=== PATIENT | female | born 1960 | race Caucasian/White ===

== ENCOUNTER 2016-12-06 06:56 | Day surgery (SDC) | payer BC ==
[~2016-12-06] VITALS: Ht 171.4 cm; Wt 52.7 kg
[2016-12-06 07:27] VITALS: BP 137/80; PULSE 83; RESP 20; TEMP 98.3; O2SAT 96
[2016-12-06] MEDS ORDERED: EMTRTAB6 PO (07:30)
[2016-12-06] MEDS ORDERED: LEVO175T2 PO (07:30)
[2016-12-06] MEDS ORDERED: ASPI81CH CHEW (07:30)
[2016-12-06] MEDS ORDERED: TRIA1TAB21 PO (07:30)
[2016-12-06] MEDS ORDERED: VITACAP7 PO (07:30)
[2016-12-06] MEDS ORDERED: CITA10TA4 PO (07:30)
[2016-12-06] MEDS ORDERED: ACYC-101 PO (07:30)
[2016-12-06] MEDS ORDERED: DIAZ5 PO (07:30)
[2016-12-06] MEDS ORDERED: SODIUM CHLOR 0.9% 1000 ML INJ 1,000 ML IV SCH (08:15)
[2016-12-06 09:25] VITALS: BP 136/73; PULSE 68; RESP 20; TEMP 98.4; O2SAT 98
--- NOTE | 2016-12-06 09:28 | PD.RAD ---
Post Procedure Progress Note Pre Procedure Diagnosis: (1) Idiopathic progressive neuropathy Post Procedure Diagnosis: (1) Idiopathic progressive neuropathy Procedure Date: December 06, 2016 Supervising Radiologist: Ken Arreola Proceduralist/Assist: RT Katerin(R), RT Randy(R)(CV) Anesthesia: Local Plan of Activity Patient to Unit: ROPU Patient Condition: Good See PACS Report for procedural detail/treatment Spinal Procedure Lumbar Puncture L3-L4 Fluid Removal (CCs): 16 Fluid Description: Clear Puncture Time: 09:16 Ken Arreola MD December 06, 2016 09:28
--- NOTE | 2016-12-06 09:51 | RADRPT ---
EXAM DATE/TIME: 12/06/2016 10:04 [facility] COMPARISON: No previous studies available for comparison. INDICATIONS : Patient presents with progressive neuropathy in need of lumbar puncture to rule out multiple sclerosi s. MEDICAL HISTORY : Fibromyalgia High cholesterol Hiv hx SURGICAL HISTORY : Lumbar discectomy Right knee ENCOUNTER: Initial ACUITY: 2 weeks PAIN SCORE: 0/10 LOCATION: N/A LUMBAR PUNCTURE TIME: 09:16 hours FLUORO TIME: 0.7 minutes IMAGE SERIES: ACCESS LEVEL: L3-4 FLUID: 16.5 cc of clear CSF was collected and sent to the laboratory for analysis. PROCEDURE : 1. Fluoroscopic guided lumbar puncture. The risks, benefits and alternatives to the procedure were explained and verbal and written consent w as obtained. The site was prepped in sterile fashion. Full sterile technique was used, including ca p, mask, sterile gloves and gown and a large sterile sheet. Hand hygiene and 2% chlorhexidine and/or betadine/alcohol prep was utilized per protocol for cutaneous antisepsis. The skin and subcutaneous tissues were infiltrated with local anesthetic solution. With fluoroscopic guidance the lumbar thecal sac was punctured at the level above. The fluid describ ed above was removed without difficulty. The patient tolerated the procedure well and there were no complications. CONCLUSION: Uncomplicated fluoroscopically guided lumbar puncture. Ken Arreola MD on December 06, 2016 at 9:49 Board Certified Radiologist. This report was verified electronically.
[2016-12-06 10:02] LABS: BICARBONATE 27.6 MEQ/L (21.0-32.0); POTASSIUM 3.3 MEQ/L (3.5-5.1)
[2016-12-06 10:22] LABS: GROSS BLOOD TUBE #1 0 (0); GROSS BLOOD TUBE #2 0 (0); GROSS BLOOD TUBE #3 0 (0); GROSS BLOOD TUBE #4 TRACE (0); SUPERNATE COLOR TUBE #1 CLEAR (CLEAR); SUPERNATE COLOR TUBE #2 CLEAR (CLEAR); SUPERNATE COLOR TUBE #3 CLEAR (CLEAR); SUPERNATE COLOR TUBE #4 CLEAR (CLEAR); VOLUME TUBE # 1 2.9 ML; VOLUME TUBE # 4 7.5 ML
[2016-12-06 10:23] LABS: CSF LYMPHOCYTES 65 %; CSF MONOCYTES 25 %; CSF NEUTROPHILS 10 %; WBC TUBE #4 5 /MM3 (0-10)
[2016-12-06 11:00] VITALS: BP 135/75; PULSE 68; RESP 20; O2SAT 98
[2016-12-07 16:39] LABS: ALBUMIN SERUM 4190 mg/dL (3200 - 4800); IGG CSF 4.6 mg/dL (<=8.1); IGG INDEX CSF 0.85 (<=0.85); IGG SERUM 853 mg/dL (767 - 1590); IGG/ALBUMIN CSF 0.17 (<=0.21); OLIGOCLONAL BANDING CSF 9 bands (()); OLIGOCLONAL BANDING INTERPRET 5 bands (<4); OLIGOCLONAL BANDING SERUM 4 bands (()); SYNTHESIS RATE CSF 9.57 mg/24 h (<=12)
[2016-12-09 09:35] LABS: CSF CRYPTOCOCCUS AG CONF ND (NOT DETECTD)
[2016-12-09 16:40] LABS: LYME IGG IMMUNOBLOT CSF None Detected bands (None Detected); LYME IGM IMMUNOBLOT CSF None Detected bands (None Detected)
[2016-12-11 13:53] LABS: VDRL CSF NON-REACTIVE (())
== END 2016-12-06 11:30 | disposition home or self-care (01) ==
LOC: HROP 06:56 → HRIP 06:57 → HROP 11:30
PROVIDERS: ATTEND Psychiatry & Neurology Neurology
DX: G60.3 Idiopathic progressive neuropathy (principal); G35 Multiple sclerosis; E78.00 Pure hypercholesterolemia, unspecified; M79.7 Fibromyalgia; B20 Human immunodeficiency virus [HIV] disease
CPT/HCPCS: 62270; 77003; 80048; 82040; 82042; 82784; 82945; 83873; 83916; 84157; 86403; 86592; 86618; 87015; 87070; 87102; 87116; 87205; 87206; 89051; J7030

== ENCOUNTER 2017-04-18 13:07 | Inpatient (IN) | payer BC ==
[~2017-04-18] VITALS: Ht 170.2 cm; Wt 56.2 kg
[~2017-04-18 13:07] MED LIST: ACYC-101 PO; ASPI81CH CHEW; CITA10TA4 PO; DIAZ5 PO; EMTRTAB6 PO; LEVO175T2 PO; TRIA1TAB21 PO; VITACAP7 PO
[2017-04-18 13:14] VITALS: BP 122/59; PULSE 110; RESP 18; TEMP 98.8; O2SAT 92
[2017-04-18] MEDS ORDERED: MULTTAB27 (13:25)
[2017-04-18] MEDS ORDERED: EMTR1TAB2 PO (13:25)
[2017-04-18] MEDS ORDERED: MAGN400T2 PO (13:25)
[2017-04-18] MEDS ORDERED: POTA8CAP PO (13:25)
[2017-04-18] MEDS ORDERED: ESCI10TA PO (13:25)
[2017-04-18] MEDS ORDERED: TRAM50TA PO (13:25)
[2017-04-18] MEDS ORDERED: HALC0.25 PO (13:25)
[2017-04-18] MEDS ORDERED: LEVOFLOXACIN 750 MG PREMIX INJ 150 ML IV ONE (13:30)
[2017-04-18] MEDS ORDERED: CLINDAMYCIN INJ 600 MG in SODIUM CHLORIDE 0.9% INJ 100 ML IV ONE (13:30)
[2017-04-18] MEDS ORDERED: SODIUM CHLORIDE 0.9% FLUSH 10 ML FLUSH IVF PRN ×2 (13:30)
--- NOTE | 2017-04-18 13:38 | PD ---
HPI Chief Complaint: Respiratory Symptoms Time Seen by Provider: 13:16 Travel History International Travel<30 days: No Contact w/Intl Traveler<30days: No Traveled to known affect area: No History of Present Illness HPI PATIENT SEEN BY PRIMARY CARE DOCTOR AND ADVISED TO COME TO ER.....PER PATIENT C/ O COUGH, X 2DAYS, NONPRODUCTIVE, SOB/WHEEZY, PER PATIENT HAS HIV POSITIVE STATUS , AND PER HX STATES CD4 COUNT IN THE 700'S....C/O BODY ACHES..... DENIES SANTAIGO/N/V /D/CHILLS/ PFSH Past Medical History Cancer: No Cardiovascular Problems: No Diabetes: No Endocrine: No Gastrointestinal Disorders: No Genitourinary: No Hepatitis: No Hiatal Hernia: No Hypertension: No Immune Disorder: Yes (HIV) Medical other: Yes (FIBROMYALGIA) Musculoskeletal: No Neurologic: Yes (PAIN ALL OVER,NEUROPATHY) Psychiatric: Yes (ANXIETY) Reproductive: No Respiratory: No Thyroid Disease: Yes Ovarian Cysts: Yes Past Surgical History Abdominal Surgery: No AICD: No Cardiac Surgery: No Ear Surgery: No Endocrine Surgery: No Eye Surgery: No Genitourinary Surgery: No Gynecologic Surgery: Yes (OVARIAN CYST) Joint Replacement: No Neurologic Surgery: No Oral Surgery: Yes (ROOT CANAL) Pacemaker: No Thoracic Surgery: No Other Surgery: Yes Social History Alcohol Use: No Tobacco Use: Yes (1 PPD) Substance Use: No Allergies-Medications (Allergen,Severity, Reaction): Coded Allergies: Sulfa (Sulfonamide Antibiotics) (Unverified Allergy, Intermediate, Rash, ) codeine (Unverified Allergy, Mild, Nausea/Vomiting, 04/18/17) Reported Meds & Prescriptions Reported Meds & Active Scripts Active Reported Escitalopram (Escitalopram Oxalate) 10 Mg Tab 10 Mg PO DAILY Odefsey (Tsewetfekited-Beuswgwplpe-Hlpviuiaw Alafenam) 200-200-25 Mg Tab 1 Tab PO DAILY Halcion (Triazolam) 0.25 Mg Tab 0.25 Mg PO HS Tramadol (Tramadol HCl) 50 Mg Tab 50 Mg PO TID PRN Magnesium Oxide 400 Mg Tab 400 Mg PO DAILY Potassium Chloride ER (Potassium Chloride) 8 Meq Cap 8 Meq PO DAILY Multi-Day Vitamins (Multiple Vitamin) 1 Tab Tab Valium (Diazepam) 5 Mg Tab 5 Mg PO TID PRN B Complex (B-Complex Vitamins) 1 Cap 1 Cap PO DAILY Zovirax (Acyclovir) 800 Mg Tab 800 Mg PO TID PRN Levothyroxine (Levothyroxine Sodium) 175 Mcg Tab 175 Mcg PO DAILY Review of Systems Except as stated in HPI: all other systems reviewed are Neg Respiratory: Positive: Cough, Wheezing Physical Exam Narrative GENERAL: SKIN: Warm and dry. HEAD: Atraumatic. Normocephalic. EYES: Pupils equal and round. No scleral icterus. No injection or drainage. ENT: No nasal bleeding or discharge. Mucous membranes pink and moist. NECK: Trachea midline. No JVD. CARDIOVASCULAR: Regular rate and rhythm. RESPIRATORY: No accessory muscle use. Clear to auscultation. Breath sounds equal bilaterally. GASTROINTESTINAL: Abdomen soft, non-tender, nondistended. Hepatic and splenic margins not palpable. MUSCULOSKELETAL: Extremities without clubbing, cyanosis, or edema. No obvious deformities. NEUROLOGICAL: Awake and alert. No obvious cranial nerve deficits. Motor grossly within normal limits. Five out of 5 muscle strength in the arms and legs. Normal speech. PSYCHIATRIC: Appropriate mood and affect; insight and judgment normal. Data Data Last Documented VS Vital Signs Date Time Temp Pulse Resp B/P (MAP) Pulse Ox O2 Delivery O2 Flow Rate FiO2 04/18/17 14:13 92 Aerosol Mask 04/18/17 13:14 98.8 110 18 122/59 (80) Orders Orders Electrocardiogram (04/18/17 13:29) Arterial Blood Gas (Abg) (04/18/17 13:29) Complete Blood Count With Diff (04/18/17 13:29) Comprehensive Metabolic Panel (04/18/17 13:29) Ecg Monitoring (04/18/17 13:29) Iv Access Insert/Monitor (04/18/17 13:29) Oximetry (04/18/17 13:29) Oxygen Administration (04/18/17 13:29) Albuterol Neb (Albuterol Neb) (04/18/17 13:30) Sodium Chloride 0.9% Flush (Ns Flush) (04/18/17 13:30) Lactic Acid Sepsis Protocol (04/18/17 13:29) Pneumococcal Urinary Antigen (04/18/17 13:29) Influenzae A/B Antigen (04/18/17 13:29) Urinalysis - C+S If Indicated (04/18/17 13:29) Urine Culture (04/18/17 13:29) Legionella Urinary Antigen (04/18/17 13:29) Sodium Chloride 0.9% Flush (Ns Flush) (04/18/17 13:30) Levofloxacin 750 Mg Premix Inj (Levaquin (04/18/17 13:30) Clindamycin Inj (Cleocin Inj) (04/18/17 13:30) Ct Pulmonary Angiogram (04/18/17 13:54) Budesonide Neb (Pulmicort Respule Neb) (04/18/17 14:15) Iohexol 350 Inj (Omnipaque 350 Inj) (04/18/17 15:15) Admit Order (Ed Use Only) (04/18/17 15:53) Labs Laboratory Tests Test 04/18/17 14:03 04/18/17 14:05 Blood Gas Puncture Site RT RADIAL Blood Gas Patient Temperature 98.6 Blood Gas HCO3 23 mmol/L Blood Gas Base Excess -0.4 mmol/L Blood Gas Oxygen Saturation 88 % Arterial Blood pH 7.45 Arterial Blood Partial Pressure CO2 34 mmHG Arterial Blood Partial Pressure O2 65 mmHG Arterial Blood Oxygen Content 17.3 Vol % Arterial Blood Carboxyhemoglobin 2.8 % Arterial Blood Methemoglobin 1.1 % Blood Gas Hemoglobin 14.0 G/DL Oxygen Delivery Device ROOM AIR Blood Gas Inspired Oxygen 21 % White Blood Count 6.8 TH/MM3 Red Blood Count 4.37 MIL/MM3 Hemoglobin 14.4 GM/DL Hematocrit 42.2 % Mean Corpuscular Volume 96.6 FL Mean Corpuscular Hemoglobin 32.9 PG Mean Corpuscular Hemoglobin Concent 34.1 % Red Cell Distribution Width 12.2 % Platelet Count 281 TH/MM3 Mean Platelet Volume 8.4 FL Neutrophils (%) (Auto) 65.0 % Lymphocytes (%) (Auto) 25.2 % Monocytes (%) (Auto) 7.8 % Eosinophils (%) (Auto) 1.6 % Basophils (%) (Auto) 0.4 % Neutrophils # (Auto) 4.5 TH/MM3 Lymphocytes # (Auto) 1.7 TH/MM3 Monocytes # (Auto) 0.5 TH/MM3 Eosinophils # (Auto) 0.1 TH/MM3 Basophils # (Auto) 0.0 TH/MM3 CBC Comment DIFF FINAL Differential Comment Urine Collection Type CLEAN CATCH Urine Color YELLOW Urine Turbidity CLEAR Urine pH 6.0 Urine Specific [place] 1.015 Urine Protein NEG mg/dL Urine Glucose (UA) NEG mg/dL Urine Ketones NEG mg/dL Urine Occult Blood NEG Urine Nitrite NEG Urine Bilirubin NEG Urine Leukocyte Esterase NEG Urine RBC 0-3 /hpf Urine Squamous Epithelial Cells 0-5 /hpf Microscopic Urinalysis Comment CULT NOT INDICATED Urine Collection Time 14:05 Blood Urea Nitrogen 17 MG/DL Creatinine 0.70 MG/DL Random Glucose 93 MG/DL Total Protein 8.2 GM/DL Albumin 4.2 GM/DL Calcium Level 9.7 MG/DL Alkaline Phosphatase 68 U/L Aspartate Amino Transf (AST/SGOT) 21 U/L Alanine Aminotransferase (ALT/SGPT) 30 U/L Total Bilirubin 0.5 MG/DL Sodium Level 137 MEQ/L Potassium Level 3.4 MEQ/L Chloride Level 102 MEQ/L Carbon Dioxide Level 28.5 MEQ/L Anion Gap 7 MEQ/L Estimat Glomerular Filtration Rate 87 ML/MIN Lactic Acid Level 0.6 mmol/L [facility] Medical Decision Making Medical Screen Exam Complete: Yes Emergency Medical Condition: Yes Medical Record Reviewed: Yes Interpretation(s) NSR,96, NL INTERVALS, NO STEMI PATTERN Differential Diagnosis PNA V BRONCHOSPASM V ATYPICAL PNA V PNEUMOCYSTIS CARINII PNEUMONIA V PE Narrative Course AFTER THOROUGH EVALUATION, PT FOUND TO HAVE a-A GRADIENT ON ABG, HYPOXEMIA OF 64 WITHOUT CO2 RETENTION. PATIENT RESPONDED WELL TO HOURLONG NEBS, AND NEB PULMICORT, WELL GIVEN CLINDAMYCIN TO COVER FOR PCP (PT ALLERGIC TO FIRST LINE SULFA) AND LEVAQUIN TO COVER FOR OTHER ORGANISMS. CT NEG FOR PE OR PNA....PATIENT WILL BE ADMITTED FOR OBSERVATION Diagnosis Primary Impression: HYPOXEMIC RESPIRATORY DISTRESS Additional Impression: SUSPECT NEW ONSET COPD Admitting Information Admitting Physician Requests: Observation Memo Estrella MD Apr 18, 2017 13:38
[2017-04-18] MEDS: RESP: ALBUTEROL 2.5 MG/3 ML NEB (SCH) INH (13:58)
[2017-04-18 14:11] LABS: BLOOD GAS BASE EXCESS -0.4 mmol/L (-2-2); BLOOD GAS CARBOXYHEMOGLOBIN 2.8 % (0-4); BLOOD GAS HCO3 23 mmol/L (22-26); BLOOD GAS METHEMOGLOBIN 1.1 % (0-2); BLOOD GAS O2 HGB SATURATION 88 % (90-100); BLOOD GAS OXYGEN CONTENT 17.3 Vol % (12.0-20.0); BLOOD GAS PCO2 34 mmHG (38-42); BLOOD GAS PO2 65 mmHG (61-120); TEMP CORR TO 98.6
[2017-04-18 14:12] LABS: CRITICAL VALUE YES; DRAW SITE RT RADIAL; FIO2 21 %; NUMBER OF ARTERIAL PUNCTURES 1; OXYGEN DEVICE ROOM AIR; STAT YES; ULNAR PULSE PRESENT
[2017-04-18 14:13] VITALS: O2SAT 92
[2017-04-18 14:13] LABS: AUTOMATED NEUTROPHIL # 4.5 TH/MM3 (1.8-7.7); BASOPHIL % 0.4 % (0.0-2.0); EOSINOPHIL # 0.1 TH/MM3 (0-0.4); EOSINOPHIL % 1.6 % (0.0-4.0); HEMATOCRIT 42.2 % (35.0-46.0); HEMO FLAGS DIFF FINAL; LYMPH % 25.2 % (9.0-44.0); LYMPHOCYTE # 1.7 TH/MM3 (1.0-4.8); MEAN CELL VOLUME 96.6 FL (80.0-100.0); MEAN CORPUSCULAR HEMOGLOBIN 32.9 PG (27.0-34.0); MEAN CORPUSCULAR HGB CONC 34.1 % (32.0-36.0); MONO % 7.8 % (0.0-8.0); PLATELET COUNT 281 TH/MM3 (150-450); RED BLOOD COUNT 4.37 MIL/MM3 (4.00-5.30); RED CELL DISTRIBUTION WIDTH 12.2 % (11.6-17.2); WHITE BLOOD COUNT 6.8 TH/MM3 (4.0-11.0)
[2017-04-18] MEDS ORDERED: RESP: BUDESONIDE 0.5 MG/2 ML NEB NEB ONE (14:15)
[2017-04-18 14:17] LABS: BLOOD, URINE NEG (NEG); GLUCOSE,URINE NEG (NEG); KETONE, URINE NEG (NEG); NITRITE,URINE NEG (NEG)
[2017-04-18 14:21] LABS: CHLORIDE 102 MEQ/L (98-107); POTASSIUM 3.4 MEQ/L (3.5-5.1); SODIUM (NA) 137 MEQ/L (136-145)
[2017-04-18 14:26] LABS: ANION GAP 7 MEQ/L (5-15); BICARBONATE 28.5 MEQ/L (21.0-32.0); BLOOD UREA NITROGEN 17 MG/DL (7-18)
[2017-04-18 14:29] LABS: ALT (GPT) 30 U/L (10-53); AST (GOT) 21 U/L (15-37); GLOMERULAR FILTRATION RATE 87 ML/MIN (>89)
[2017-04-18 14:30] LABS: TOTAL BILIRUBIN ADULT 0.5 MG/DL (0.2-1.0)
[2017-04-18 14:32] LABS: ALKALINE PHOSPHATASE 68 U/L (45-117); COMMENT (UR) CULT NOT INDICATED; CULTURE IF INDICATED CULT NOT INDICATED; METHOD OF COLLECTION CLEAN CATCH; RBC, URINE 0-3 /hpf (0-3); SQUAMOUS EPITHELIAL CELL URINE 0-5 /hpf (0-5); URINE COLOR YELLOW (YELLW/STRAW)
[2017-04-18] MEDS ORDERED: IOHEXOL 350 MG/ML 10 ML VIAL (for RAD DIAG) IVCONTRAST ONE (15:15)
--- NOTE | 2017-04-18 15:31 | RADRPT ---
EXAM DATE/TIME: 04/18/2017 15:11 [facility] COMPARISON: No previous studies available for comparison. INDICATIONS : Short of breath. Cough x 2 days. IV CONTRAST: 75 cc Omnipaque 350 (iohexol) IV RADIATION DOSE: 6.46 CTDIvol (mGy) MEDICAL HISTORY : HIV. SURGICAL HISTORY : None. ENCOUNTER: Initial ACUITY: 2 days PAIN SCALE: 0/10 LOCATION: chest TECHNIQUE: Volumetric scanning of the chest was performed using a pulmonary embolism protocol MIP images were re constructed. Using automated exposure control and adjustment of the mA and/or kV according to patien t size, radiation dose was kept as low as reasonably achievable to obtain optimal diagnostic quality images. DICOM format image data is available electronically for review and comparison. Follow-up recommendations for detected pulmonary nodules are based at a minimum on nodule size and pa tient risk factors according to Fleischner Society Guidelines. FINDINGS: PULMONARY ARTERIES: No filling defects are seen in the pulmonary arteries through the segmental level. LUNGS: There is no consolidation or pneumothorax . No concerning pulmonary nodule is visualized. PLEURAE: There is no pleural thickening or pleural effusion. MEDIASTINUM: There is good visualization of the great vessels of the middle mediastinum. No evidence of mediastin al or hilar adenopathy/mass. MUSCULOSKELETAL: Within normal limits for patient age. MISCELLANEOUS: The visualized upper abdominal organs demonstrate no acute abnormality. CONCLUSION: 1. Negative examination. Galdino Elliott MD on April 18, 2017 at 15:27 Board Certified Radiologist. This report was verified electronically.
[2017-04-18] MEDS ORDERED: RESP: ALBUTEROL 2.5 MG/IPRATROPIUM 0.5 MG NEB (PRN) NEB (16:00)
[2017-04-18] MEDS ORDERED: SODIUM CHLORIDE 0.9% FLUSH 10 ML FLUSH IV FLUSH PRN (16:00)
[2017-04-18] MEDS ORDERED: NALOXONE HCL 0.4 MG/ML AMP IV PUSH PRN (16:00)
[2017-04-18] MEDS ORDERED: ENOXAPARIN SODIUM 40 MG/0.4 ML SYRINGE SQ SCH (16:00)
[2017-04-18 16:51] VITALS: BP 112/62; PULSE 78; RESP 18; O2SAT 96
--- NOTE | 2017-04-18 17:00 | HHI.HP ---
[facility] Shahbaz Deshpande, Admission Diagnosis HYPOXEMIC RESPIRATORY DISTRESS Diagnoses: Chief Complaint: sob Travel History International Travel<30 Days: No Contact w/Intl Traveler <30 Da: No Traveled to Known Affected Are: No History of Present Illness The patient is a very pleasant 56-year-old female with a known history of HIV for which she has been taking antivirals. She did have about about 3 days of cough with 4-5 days of increased work of breathing. Her cough is worse at night and keeping her awake. She also had noted increased muscle contractions over the last several days. She has noted that her lives with her was sick and had a virus he. He took some antibiotics and felt better. She has not felt better. She saw her primary care physician today and was sent urgently to the hospital because of some oxygen sats were about 92%. There were worried that she had pneumonia. She also appeared dehydrated. Here patient has been hypoxemic but this seemed to have improved with bronchodilators. Of note about a year ago she was told she had COPD and was prescribed a Ventolin inhaler. She never used it. She says she felt fine. She denies chest pain or fever and has otherwise been in a good state of health. Patient admitted to the hospital for likely COPD exacerbation Review of Systems Constitutional: DENIES: Diaphoretic episodes, Fatigue, Fever, Weight gain, Weight loss, Chills, Dizziness, Change in appetite, Night Sweats Endocrine: DENIES: Abnorml menstrual pattern, Heat/cold intolerance, Polydipsia , Polyuria, Polyphagia Eyes: DENIES: Blurred vision, Diplopia, Eye inflammation, Eye pain, Vision loss , Photosensitivity, Double Vision Ears, nose, mouth, throat: COMPLAINS OF: Running Nose, DENIES: Tinnitus, Hearing loss, Vertigo, Nasal discharge, Oral lesions, Throat pain, Hoarseness, Ear Pain, Epistaxis, Sinus Pain, Toothache, Odynophagia Respiratory: COMPLAINS OF: Cough, Wheezing, DENIES: Apneas, Snoring, Hemoptysis , Sputum production, Shortness of breath Cardiovascular: DENIES: Chest pain, Palpitations, Syncope, Dyspnea on Exertion , PND, Lower Extremity Edema, Orthopnea, Claudication Gastrointestinal: DENIES: Abdominal pain, Black stools, Bloody stools, Constipation, Diarrhea, Nausea, Vomiting, Difficulty Swallowing, Anorexia Genitourinary: DENIES: Abnormal vaginal bleeding, Dysmenorrhea, Dyspareunia, Sexual dysfunction, Urinary frequency, Urinary incontinence, Urgency, Hematuria , Dysuria, Nocturia, Vaginal discharge Musculoskeletal: DENIES: Joint pain, Muscle aches, Stiffness, Joint Swelling, Back pain, Neck pain Integumentary: DENIES: Abnormal pigmentation, Pruritus, Rash, Nail changes, Breast masses, Breast skin changes, Nipple discharge Immunologic/allergic: DENIES: Eczema, Urticaria Neurologic: DENIES: Abnormal gait, Headache, Localized weakness, Paresthesias, Seizures, Speech Problems, Tremor, Poor Balance Psychiatric: DENIES: Anxiety, Confusion, Mood changes, Depression, Hallucinations, Agitation, Suicidal Ideation, Homicidal Ideation, Delusions Except as stated in HPI: all other systems reviewed are Neg Past Family Social History Past Medical History History HIV, on antiviral therapy Anxiety/depression Hypothyroidism COPD (diagnosed a year ago) Past Surgical History Right knee, right ovarian cyst, back surgery, root canal Reported Medications Reviewed in the medical record, recently prescribed tramadol Allergies: Coded Allergies: Sulfa (Sulfonamide Antibiotics) (Unverified Allergy, Intermediate, Rash, ) codeine (Unverified Allergy, Mild, Nausea/Vomiting, 04/18/17) Active Ordered Medications Reviewed in the medical record Family History Mother had hypertension, father from lung cancer at 62 Social History Patient has been a smoker for over 12 years (quit for 5 year period and again for 3 month.) Currently smokes a pack a day Lives with her , no alcohol dependency Physical Exam Vital Signs Vital Signs Date Time Temp Pulse Resp B/P (MAP) Pulse Ox O2 Delivery O2 Flow Rate FiO2 04/18/17 14:13 92 Aerosol Mask 04/18/17 13:14 98.8 110 18 122/59 (80) 92 Physical Exam GENERAL: This is a well-nourished, well-developed patient, short of breath with minimal exertion SKIN: No rashes, ecchymoses or lesions. Cool and dry. HEAD: Atraumatic. Normocephalic. No temporal or scalp tenderness. EYES: Pupils equal round and reactive. Extraocular motions intact. No scleral icterus. No injection or drainage. ENT: Nose without bleeding, purulent drainage or septal hematoma. Throat without erythema, tonsillar hypertrophy or exudate. Uvula midline. Airway patent. NECK: Trachea midline. No JVD or lymphadenopathy. Supple, nontender, no meningeal signs. CARDIOVASCULAR: Regular rate and rhythm without murmurs, gallops, or rubs. RESPIRATORY: Clear to auscultation. Breath sounds equal bilaterally. No wheezes , rales, or rhonchi. GASTROINTESTINAL: Abdomen soft, non-tender, nondistended. No hepato-splenomegaly , or palpable masses. No guarding. MUSCULOSKELETAL: Extremities without clubbing, cyanosis, or edema. No joint tenderness, effusion, or edema noted. No calf tenderness. Negative Homans sign bilaterally. NEUROLOGICAL: Awake and alert. Cranial nerves II through XII intact. Motor and sensory grossly within normal limits. Five out of 5 muscle strength in all muscle groups. Normal speech. Laboratory Laboratory Tests Test 04/18/17 14:03 04/18/17 14:05 Blood Gas Puncture Site RT RADIAL Blood Gas Patient Temperature 98.6 Blood Gas HCO3 23 Blood Gas Base Excess -0.4 Blood Gas Oxygen Saturation 88 Arterial Blood pH 7.45 Arterial Blood Partial Pressure CO2 34 Arterial Blood Partial Pressure O2 65 Arterial Blood Oxygen Content 17.3 Arterial Blood Carboxyhemoglobin 2.8 Arterial Blood Methemoglobin 1.1 Blood Gas Hemoglobin 14.0 Oxygen Delivery Device ROOM AIR Blood Gas Inspired Oxygen 21 White Blood Count 6.8 Red Blood Count 4.37 Hemoglobin 14.4 Hematocrit 42.2 Mean Corpuscular Volume 96.6 Mean Corpuscular Hemoglobin 32.9 Mean Corpuscular Hemoglobin Concent 34.1 Red Cell Distribution Width 12.2 Platelet Count 281 Mean Platelet Volume 8.4 Neutrophils (%) (Auto) 65.0 Lymphocytes (%) (Auto) 25.2 Monocytes (%) (Auto) 7.8 Eosinophils (%) (Auto) 1.6 Basophils (%) (Auto) 0.4 Neutrophils # (Auto) 4.5 Lymphocytes # (Auto) 1.7 Monocytes # (Auto) 0.5 Eosinophils # (Auto) 0.1 Basophils # (Auto) 0.0 CBC Comment DIFF FINAL Differential Comment Urine Collection Type CLEAN CATCH Urine Color YELLOW Urine Turbidity CLEAR Urine pH 6.0 Urine Specific [place] 1.015 Urine Protein NEG Urine Glucose (UA) NEG Urine Ketones NEG Urine Occult Blood NEG Urine Nitrite NEG Urine Bilirubin NEG Urine Leukocyte Esterase NEG Urine RBC 0-3 Urine Squamous Epithelial Cells 0-5 Microscopic Urinalysis Comment CULT NOT INDICATED Urine Collection Time 14:05 Blood Urea Nitrogen 17 Creatinine 0.70 Random Glucose 93 Total Protein 8.2 Albumin 4.2 Calcium Level 9.7 Alkaline Phosphatase 68 Aspartate Amino Transf (AST/SGOT) 21 Alanine Aminotransferase (ALT/SGPT) 30 Total Bilirubin 0.5 Sodium Level 137 Potassium Level 3.4 Chloride Level 102 Carbon Dioxide Level 28.5 Anion Gap 7 Estimat Glomerular Filtration Rate 87 Lactic Acid Level 0.6 Date/Time Source Procedure Growth Status 04/18/17 14:05 Nasal Washing Influenza Types A,B Antigen (DODIE) - Final NEGATIVE FOR FLU A AND B ANTIGEN.... Complete 04/18/17 14:05 Urine Clean Catch Legionella Antigen Pending Received 04/18/17 14:05 Urine Clean Catch Streptococcus pneumoniae Antigen (M Pending Received Result Diagram: 04/18/17 1405 04/18/[address] Angiography 04/18/17 1354 Signed Impressions: Service Date/Time: Tuesday, April 18, 2017 15:11 - CONCLUSION: 1. Negative examination. Galdino Elliott MD Assessment and Plan Problem List: (1) COPD (chronic obstructive pulmonary disease) ICD Code: J44.9 - Chronic obstructive pulmonary disease, unspecified Plan: with mild exacerbation Continue IV steroids, bronchodilators, will add antibiotics (already has received clindamycin and Levaquin Previous diagnosis about a year ago with an hand-held inhaler prescribed but she did not use. Patient education provided (2) Hypothyroid ICD Code: E03.9 - Hypothyroidism, unspecified Plan: resume synthroid (3) HIV (human immunodeficiency virus infection) ICD Code: B20 - Human immunodeficiency virus [HIV] disease Plan: On HAART, continue odefsey Code Status Full code Discussed Condition With Patient, EMI [place] Physician Certification 2 Midnight Certification Type: Admission for Inpatient Services Order for Inpatient Services The services are ordered in accordance with Medicare regulations or non- Medicare payer requirements, as applicable. In the case of services not specified as inpatient-only, they are appropriately provided as inpatient services in accordance with the 2-midnight benchmark. Estimated LOS (days): 3 3 days is the estimated time the patient will need to remain in the hospital, assuming treatment plan goals are met and no additional complications. Post-Hospital Plan: Angelic Hill MD Apr 18, 2017 17:00
[2017-04-18] MEDS: DIAZEPAM 5 MG TAB PO PRN (18:33)
[2017-04-18] MEDS: traMADol HCL 50 MG TAB PO PRN (20:09)
[2017-04-18] MEDS ORDERED: ZOLPIDEM TARTRATE 5 MG TAB PO ONE (20:45)
[2017-04-18 20:47] VITALS: BP 137/72; PULSE 81; RESP 16; TEMP 98.2; O2SAT 96
[2017-04-18] MEDS ORDERED: TRIAZOLAM PO SCH (21:00)
[2017-04-18 21:05] VITALS: O2SAT 94
[2017-04-18] MEDS: RESP: ALBUTEROL 2.5 MG/IPRATROPIUM 0.5 MG NEB (SCH) NEB (21:05)
[2017-04-18] MEDS: SODIUM CHLORIDE 0.9% FLUSH 10 ML FLUSH IV FLUSH SCH (21:47)
[2017-04-18] MEDS: methylPREDNISolone SOD SUCC 40 MG/1 ML VIAL IV PUSH SCH (21:48)
[2017-04-19 01:46] VITALS: BP 128/68; PULSE 76; RESP 16; TEMP 98; O2SAT 97
[2017-04-19] MEDS: traMADol HCL 50 MG TAB PO PRN ×2 (03:49→12:05)
[2017-04-19] MEDS: methylPREDNISolone SOD SUCC 40 MG/1 ML VIAL IV PUSH SCH (06:17)
[2017-04-19] MEDS: RESP: ALBUTEROL 2.5 MG/IPRATROPIUM 0.5 MG NEB (SCH) NEB (07:23)
[2017-04-19 07:25] VITALS: O2SAT 97
[2017-04-19] MEDS ORDERED: LEVO75TA3 PO (07:44)
[2017-04-19 08:00] VITALS: BP 121/68; PULSE 87; RESP 16; TEMP 96.3; O2SAT 93
[2017-04-19] MEDS: DIAZEPAM 5 MG TAB PO PRN (08:29)
[2017-04-19] MEDS ORDERED: TENOFOVIR ALAFENAMIDE PO SCH (09:00)
[2017-04-19] MEDS ORDERED: RILPIVIRINE PO SCH (09:00)
[2017-04-19] MEDS ORDERED: LEVOTHYROXINE SODIUM 100 MCG TAB PO SCH (09:00)
[2017-04-19] MEDS ORDERED: LEVOTHYROXINE SODIUM 75 MCG TAB PO SCH (09:00)
[2017-04-19] MEDS ORDERED: ESCITALOPRAM OXALATE 10 MG TAB PO SCH (09:00)
[2017-04-19] MEDS ORDERED: MAGNESIUM OXIDE 400 MG TAB PO SCH (09:00)
[2017-04-19] MEDS ORDERED: POTASSIUM CHLORIDE 8 MEQ CAP PO SCH (09:00)
[2017-04-19] MEDS ORDERED: EMTRICITABINE PO SCH (09:00)
[2017-04-19] MEDS ORDERED: PROMETHAZINE HCL 25 MG TAB PO PRN (09:15)
[2017-04-19] MEDS ORDERED: ONDANSETRON HCL 4 MG/2 ML VIAL IV PUSH PRN (09:15)
[2017-04-19] MEDS: SODIUM CHLORIDE 0.9% FLUSH 10 ML FLUSH IV FLUSH SCH (09:51)
[2017-04-19 12:00] VITALS: BP 120/61; PULSE 74; RESP 16; TEMP 97.1; O2SAT 96
[2017-04-19] MEDS ORDERED: IPRA17I INH (12:38)
[2017-04-19] MEDS ORDERED: IPRASOL INH (12:38)
[2017-04-19] MEDS ORDERED: DOXY100C PO (12:38)
[2017-04-19] MEDS ORDERED: NEBULIZER1 MI1 (12:39)
--- NOTE | 2017-04-19 12:39 | HHI.DCPOC ---
Discharge Care Plan Diagnosis: (1) COPD (chronic obstructive pulmonary disease) Goals to Promote Your Health * To prevent worsening of your condition and complications * To maintain your health at the optimal level Directions to Meet Your Goals Take your medications as prescribed Follow your dietary instruction Follow activity as directed Keep your appointments as scheduled Take your immunizations and boosters as scheduled If your symptoms worsen call your PCP, if no PCP go to Urgent Care Center or Emergency Room Smoking is Dangerous to Your Health. Avoid second hand smoke Call the 24-hour hour crisis hotline for domestic abuse at Angelic Joshua MD Apr 19, 2017 12:39
--- NOTE | 2017-04-19 12:41 | HHI.DS ---
delfin Discharge Summary Admission Date Apr 18, 2017 at 15:57 Discharge Date: Apr 19, 2017 Admitting Diagnosis HYPOXEMIC RESPIRATORY DISTRESS (1) COPD (chronic obstructive pulmonary disease) ICD Code: J44.9 - Chronic obstructive pulmonary disease, unspecified (2) Hypothyroid ICD Code: E03.9 - Hypothyroidism, unspecified (3) HIV (human immunodeficiency virus infection) ICD Code: B20 - Human immunodeficiency virus [HIV] disease Procedures None Brief History - From Admission The patient is a very pleasant 56-year-old female with a known history of HIV for which she has been taking antivirals. She did have about about 3 days of cough with 4-5 days of increased work of breathing. Her cough is worse at night and keeping her awake. She also had noted increased muscle contractions over the last several days. She has noted that her lives with her was sick and had a virus he. He took some antibiotics and felt better. She has not felt better. She saw her primary care physician today and was sent urgently to the hospital because of some oxygen sats were about 92%. There were worried that she had pneumonia. She also appeared dehydrated. Here patient has been hypoxemic but this seemed to have improved with bronchodilators. Of note about a year ago she was told she had COPD and was prescribed a Ventolin inhaler. She never used it. She says she felt fine. She denies chest pain or fever and has otherwise been in a good state of health. Patient admitted to the hospital for likely COPD exacerbation CBC/BMP: 04/18/17 1405 04/18/17 1405 Significant Findings Laboratory Tests Test 04/18/17 14:03 04/18/17 14:05 Blood Gas Oxygen Saturation 88 % (90-100) Arterial Blood pH 7.45 (7.380-7.420) Arterial Blood Partial Pressure CO2 34 mmHG (38-42) Potassium Level 3.4 MEQ/L (3.5-5.1) Estimat Glomerular Filtration Rate 87 ML/MIN (>89) Imaging Last Impressions CT Angiography 04/18/17 4442 Signed Impressions: Service Date/Time: Tuesday, April 18, 2017 15:11 - CONCLUSION: 1. Negative examination. Galdino Elliott MD PE at Discharge GENERAL: This is a well-nourished, well-developed patient, in no apparent distress. CARDIOVASCULAR: Regular rate and rhythm without murmurs, gallops, or rubs. RESPIRATORY: Clear to auscultation. Breath sounds equal bilaterally. No wheezes , rales, or rhonchi. GASTROINTESTINAL: Abdomen soft, non-tender, nondistended. Normal active bowel sounds MUSCULOSKELETAL: Extremities without clubbing, cyanosis, or edema. NEURO: Alert & Oriented x4 to person, place, time, situation. Moves all ext x4 Pt update on day of discharge doing better today. No further hypoxemia. Patient passed her walk study. Discharge plans discussed with patient and with spouse Hospital Course patient is a pleasant 56-year-old female with increased work of breathing and dyspnea in the setting of a virus. Patient had some transient hypoxemia. She has underlying COPD which is been untreated. Patient is recommended for continued treatment of COPD as well as outpatient follow-up with her primary care physician. Pt Condition on Discharge: Good Discharge Disposition: Discharge Home Discharge Time: <= 30 minutes Discharge Instructions DIET: Follow Instructions for: As Tolerated, No Restrictions Activities you can perform: Regular-No Restrictions New Medications: Doxycycline Hyclate (Doxycycline Hyclate) 100 Mg Cap 100 MG PO BID for Infection, #20 CAP 0 Refills Ipratropium HFA 12.9 GM Inh (Atrovent HFA 12.9 GM Inh) 17 Mcg/Actuation Aer 2 PUFF INH Q6HR PRN for SHORTNESS OF BREATH, #1 INHALER 0 Refills Ipratropium-Albuterol Neb (Duoneb) 0.5-2.5 Mg/3 Ml Neb 1 NEBULE INH Q4HR NEB for Breathing Treatment, #180 NEBULE 0 Refills Nebulizer (Nebulizer) 1 Mis Mis EA .ROUTE DIRECTED for Breathing Treatment, #1 0 Refills Continued Medications: Acyclovir (Zovirax) 800 Mg Tab 800 MG PO TID PRN for RASH, TAB 0 Refills B-Complex Vitamins (B Complex) 1 Cap 1 CAP PO DAILY for Nutritional Supplement, #30 CAP 0 Refills Diazepam (Valium) 5 Mg Tab 5 MG PO TID PRN for ANXIETY, TAB 0 Refills Xzxwlvjxdjpnu-Evkujxlogou-Kihqnapdi Alafenam (Rushefsey) 200-200-25 Mg Tab 1 TAB PO DAILY for Mgmt Viral Infection, #30 TAB 0 Refills Escitalopram (Escitalopram) 10 Mg Tab 10 MG PO DAILY, #30 TAB 0 Refills Levothyroxine (Levothyroxine) 75 Mcg Tab 75 MCG PO DAILY for Thyroid, #30 TAB 0 Refills Magnesium Oxide (Magnesium Oxide) 400 Mg Tab 400 MG PO DAILY for Nutritional Supplement, TAB 0 Refills Multiple Vitamin (Multi-Day Vitamins) 1 Tab Tab Potassium Chloride ER (Potassium Chloride ER) 8 Meq Cap 8 MEQ PO DAILY for Electrolyte Replacement, #30 CAP 0 Refills Tramadol (Tramadol) 50 Mg Tab 50 MG PO TID PRN for PAIN, TAB 0 Refills Triazolam (Halcion) 0.25 Mg Tab 0.25 MG PO HS for Provide Good Sleep, #30 TAB 0 Refills Angelic Joshua MD Apr 19, 2017 12:41
--- NOTE | 2017-04-20 13:49 | EKG ---
Date Performed: 04/18/2017 Time Performed: 13:46:09 PTAGE: 56 years EKG: Sinus rhythm WITH SINUS ARRHYTHMIA NORMAL ECG NO PREVIOUS TRACING DOCTOR: Jayden Estrada Interpretating Date/Time 04/20/2017 13:48:08
== END 2017-04-19 13:27 | disposition home or self-care (01) | DRG 192 ==
LOC: PHED 13:07 → PHEDA 15:53 → OBSVTOIN 15:57 → PH3A 17:17
PROVIDERS: ADMIT Hospitalist; ATTEND Hospitalist
DX: J44.1 Chronic obstructive pulmonary disease with (acute) exacerbation (principal); F32.9 Major depressive disorder, single episode, unspecified; F41.9 Anxiety disorder, unspecified; E03.9 Hypothyroidism, unspecified; F17.210 Nicotine dependence, cigarettes, uncomplicated; Z21 Asymptomatic human immunodeficiency virus [HIV] infection status
CPT/HCPCS: 36600; 71275; 80053; 81001; 82805; 83605; 85025; 87086; 87449; 87804; 93005; 94620; 94640; 94664; 96365; 96368; J1650; J1956; J2405; J2920; J7613; J7626; Q9967